=== PATIENT | female | born 1990 | race Caucasian/White ===

== ENCOUNTER → 2016-07-07 | Outpatient (CLI) | payer OTHER ==
[~2016-07-07] MED LIST: AC500T PO; FRS325T PO; LBT200T PO; PREN1TAB14 PO
--- OUTSIDE RECORDS SUMMARY | 2016-07-07 10:37 | XMS REPORT | Continuity of Care Document ---
Author Author Interface Organization Interface Address Unknown Phone Unavailable Problems Problem Status Onset Date Classification Date Reported Comments Source No data available for this section Problem 03/09/2016 [facility] Low back strain (disorder) 03/22/2015 Diagnosis 2014 [facility] Insomnia (disorder) 2014 Diagnosis 03/26/2015 [facility] Primary insomnia (disorder) 03/22/2015 Diagnosis 2014 [facility] Mental disorders of mother, 05/23/2014 Diagnosis 05/27/2014 [facility] Medications Medication Details Route Status Patient Instructions Ordering Provider Order Date Source No Known Medications No known medications Active [facility] Allergies, Adverse Reactions, Alerts Substance Category Reaction Severity Reaction type Status Date Reported Comments Source Immunizations Immunization Date Given Site Status Last Updated Comments Source No data available for this section No data available for this section [facility] Results Order Name Results Value Reference Range Date Interpretation Comments Source Vital Signs Vital Sign Value Date Comments Source Encounters Location Location Details Encounter Type Encounter Number Reason For Visit Attending Provider ADM Date DC Date Status Source [facility] [id number] Clinic ( Outpatient) [id number] Chuckbrodie Shaw 03/06/2016 [id number] Clinic ( Outpatient) [id number] Chuck Colin 05/23/2014 [facility] [id number] Clinic ( Outpatient) [id number] Chuck Colin 03/20/2015 [facility] [id number] Clinic ( Outpatient) [id number] Chuck Colin 03/22/2015 [facility] Cancel/No Show [id number] Chuck Shaw 03/06/2016 03/05/[address] [facility] [id number] Chuck Colin 03/22/2015 [facility] [id number] Chuck Shaw 05/23/2014 [facility] Procedures Procedure Code Date Perfomer Comments Source No data available for this section [facility]
--- NOTE | 2016-07-07 11:19 | Diagnostic Imaging Report ---
PROCEDURE: US Thyroid. TECHNIQUE: Multiple real-time grayscale images were obtained of the thyroid in various projections. Indication: Left thyroid enlargement on physical exam. Comparison: None. Discussion: The thyroid gland appears normal in echotexture and size bilaterally with normal color Doppler blood flow. The right thyroid measures 4.2 x 1.3 x 1.7 cm. Left thyroid measures 4.4 x 1.0 x 1.4 cm. No thyroid nodule identified. No abnormal adjacent adenopathy. Impression: 1. Normal sonographic appearance of the thyroid gland. Dictated by: Dictated on workstation # [id number]
== END ==
LOC: RAD 10:33
PROVIDERS: ATTEND Family Medicine
DX: E04.9 Nontoxic goiter, unspecified (principal)
CPT/HCPCS: 76536

== ENCOUNTER 2021-12-14 04:54 | Emergency (ER) | payer OTHER ==
[~2021-12-14] VITALS: Ht 165 cm; Wt 62.0 kg
--- NOTE | 2021-12-14 05:28 | ED General ---
General Chief Complaint: General Problems/Pain Stated Complaint: ALTITUDE SICKNESS,HEADACHE,NECK/BACK PAIN,LETHARGY Nursing Triage Note: C/O FATIGUE, HEADACHE, NECK PAIN, LOWER BACK PAIN. Source of Information: Patient Exam Limitations: No Limitations History of Present Illness Date Seen by Provider: Dec 14, 2021 Time Seen by Provider: 05:15 Initial Comments Patient is a 31-year-old female negative past medical history who presents to [facility] emergency department with myalgias, headache, nausea and malaise. She and her family were just finishing up a 10-day [employer] trip and were in [place] yesterday. She states they were at an elevation of about 7000 feet when she and her 1-year-old daughter started developing the above-stated symptoms. They left yesterday evening and drove through the night. She states she took some ibuprofen or Tylenol yesterday evening with no relief of her headache or myalgias. She is not COVID vaccinated. She has not had fever. No diarrhea or urinary complaints. No rashes, joint pain or swelling. She is not short of breath, does not have a cough. No other URI symptoms. Appetite has been okay. Last menstrual cycle was 2 weeks ago. All other review of systems reviewed and negative except as stated. Timing/Duration: 1 Day Severity: Moderate Associated Systoms: Headaches, Malaise, Nausea/Vomiting (Mild nausea), Other (Fatigue) Allergies and Home Medications Allergies Coded Allergies: No Known Drug Allergies (Unverified , 03/19/12) Patient Home Medication List Home Medication List Reviewed: Yes Discontinued Medications Ferrous Sulfate (Iron) 325 Mg Tablet, 1 TAB PO DAILY, (Reported) Discontinued Reason: No Longer Taking Entered as Reported by: NOBLE HERMAN on 03/24/12 105 Last Action: Discontinued Labetalol Hcl (Labetolol) 200 Mg Tablet, 2 EACH PO BID, (Reported) Discontinued Reason: No Longer Taking Entered as Reported by: NOBLE HERMAN on 03/24/121052 Last Action: Discontinued Vits W-Ca,Fe,Fa(<1MG) ( Vitamins) 1 Each Tablet, 1 EACH PO DAILY, (Reported) Discontinued Reason: No Longer Taking Entered as Reported by: MARY ELLEN ROUSSEAU on 03/19/12 0647 Last Action: Discontinued Review of Systems Review of Systems Constitutional: see HPI, malaise EENTM: no symptoms reported Respiratory: no symptoms reported Cardiovascular: no symptoms reported Gastrointestinal: nausea Genitourinary: no symptoms reported LMP: Nov 30, 2021 Musculoskeletal: back pain, muscle cramps, neck pain Skin: no symptoms reported Psychiatric/Neurological: Headache All Other Systems Reviewed Negative Unless Noted: Yes Past Xknstjt-Duujav-Cbfnwa Hx Patient Social History Tobacco Use?: No Substance use?: No Alcohol Use?: No Pt feels they are or have been: No Past Medical History Surgery/Hospitalization HX: CHOLECYSTECTOMY, Last Menstrual Period: Nov 30, 2021 Reproductive Disorders: No Physical Exam Vital Signs Vital Signs - First Documented 12/14/21 05:11 Temp 37.9 Pulse 100 Resp 16 B/P (MAP) 125/76 (92) Pulse Ox 99 O2 Delivery Room Air Capillary Refill : Less Than 3 Seconds Height, Weight, BMI Height: '" Weight: lbs. oz. kg; 22.00 BMI Method: General Appearance: No Apparent Distress, WD/WN Eyes: Bilateral Eye Normal Inspection, Bilateral Eye PERRL, Bilateral Eye EOMI HEENT: PERRL/EOMI Neck: Full Range of Motion, Normal Inspection, Non Tender, Supple, Other (Negative Kernig's, negative Brudzinski) Respiratory: Lungs Clear, Normal Breath Sounds, No Accessory Muscle Use, No Respiratory Distress Cardiovascular: Regular Rate, Rhythm, Normal Peripheral Pulses Gastrointestinal: Normal Bowel Sounds, Non Tender, Soft Extremity: Normal Capillary Refill, Normal Inspection, Normal Range of Motion, Non Tender, No Calf Tenderness, No Pedal Edema Neurologic/Psychiatric: Alert, Oriented x3, No Motor/Sensory Deficits, Normal Mood/Affect Skin: Normal Color, Warm/Dry Progress/Results/Core Measures Suspected Sepsis SIRS Temperature: Pulse: 100 Respiratory Rate: 16 Blood Pressure 125 /76 Mean: 92 Results/Orders Lab Results Laboratory Tests Test 12/14/21 05:30 Range/Units SARS-CoV-2 RNA (RT-PCR) Detected H Not Detecte My Orders Orders - JULIETH TALLEY MD Ed Iv/Invasive Line Start (12/14/21 05:24) Covid 19 Inhouse Test (12/14/21 05:24) Isolation Central Supply Req (12/14/21 05:24) Urine Bedside (12/14/21 05:24) Ns Iv 1000 Ml (Sodium Chloride 0.9%) (12/14/21 05:30) Ondansetron Injection (Zofran Injectio (12/14/21 05:30) Ketorolac Injection (Toradol Injection) (12/14/21 05:45) Medications Given in ED Current Medications Medications Dose Ordered Sig/Sharon Route Start Time Stop Time Status Last Admin Dose Admin Ketorolac Tromethamine 30 mg ONCE ONCE IVP 12/14/21 05:45 12/14/21 05:46 DC 12/14/21 05:50 30 MG Ondansetron HCl 4 mg ONCE ONCE IVP 12/14/21 05:30 12/14/21 05:32 DC 12/14/21 05:35 4 MG Vital Signs/I&O 12/14/21 05:11 Temp 37.9 Pulse 100 Resp 16 B/P (MAP) 125/76 (92) Pulse Ox 99 O2 Delivery Room Air Capillary Refill : Less Than 3 Seconds Blood Pressure Mean: 92 Progress Note : Time: 06:03 Progress Note COvid positive. recommend supportive care. return precautions provided. Departure Impression Primary Impression: COVID-19 Disposition: 01 HOME, SELF-CARE Condition: Improved Departure-Patient Inst. Decision time for Depature: 06:06 Referrals: LINCOLN DELVALLE MD (PCP/Family) Primary Care Physician Patient Instructions: COVID-19 (DC) Add. Discharge Instructions: Drink plenty of fluids. Over the counter Ibuprofen 600mg every 6 hours as needed for headache/pain/fev er. Zofran 4mg every 8 hours as needed for nausea. Return to the ER for any new, concerning or emergent complaints. Follow up with your primary care doctor in a week to 10 days. Scripts Ondansetron (Ondansetron Odt) 4 Mg Tab.rapdis 4 MG PO Q8H PRN for nausea, #15 TAB Prov: JULIETH TALLEY MD 12/14/21 Copy Copies To 1: LINCOLN DELVALLE MD, KATHRYN M MD Dec 14, 2021 05:28
[2021-12-14] MEDS ORDERED: NS IV 1000 ML 1,000 ML IV SCH (05:30)
[2021-12-14] MEDS ORDERED: ONDANSETRON 4 MG/2 ML (SDV) Z0FRAN IVP ONE (05:30)
[2021-12-14] MEDS ORDERED: KETOROLAC 30 MG/ML VIAL IVP ONE (05:45)
[2021-12-14] MEDS ORDERED: ONDA4TAB11 PO (06:08)
[2021-12-14 06:16] VITALS: BP 111/69
== END 2021-12-14 06:21 | disposition home or self-care (01) ==
LOC: EDUNIT# 04:54 → ER 04:56
DX: U07.1 COVID-19 (principal); Z28.310 Unvaccinated for COVID-19
CPT/HCPCS: 84703; 87636